=== PATIENT | male | born 1950 | race Caucasian/White ===

== ENCOUNTER 2020-03-23 12:09 | Emergency (ER) | payer MEDICARE, SELFPAY ==
--- NOTE | 2020-03-23 13:51 | XR_ITS ---
EXAMINATION: XR CHEST CLINICAL INFORMATION: Low oxygen. COMPARISON: None TECHNIQUE: Frontal view of the chest was obtained. FINDINGS: Lungs are hyperinflated with increase bilateral interstitial prominence and few patchy opacities in lower lobes suspicious for interstitial pneumonitis. No consolidation or pleural effusion seen. The heart size and pulmonary vascularity is normal. Moderate spondylosis seen dorsal spine.. XR/XR chest 1V IMPRESSION: Suspect bilateral interstitial pneumonitis and/or infiltrates.
[2020-03-23 14:28] VITALS: BP 120/65; PULSE 84; RESP 24; TEMP 37.4; O2SAT 92; BMI 34.2
--- NOTE | 2020-03-23 14:32 | PC.NURSE ---
AMBULATION TRIAL SPO2 INCREASED FROM 92 TO 94-95%, PT DENIES HERRERA BUT REPORTS SOME DIZZINESS AND HEAVINESS R SIDE OF CHEST.
--- NOTE | 2020-03-23 14:38 | ECG_ITS ---
Test Reason : SOB Blood Pressure : / mmHG Vent. Rate : 065 BPM Atrial Rate : 065 BPM P-R Int : 148 ms QRS Dur : 096 ms QT Int : 382 ms P-R-T Axes : 045 015 029 degrees QTc Int : 397 ms Normal sinus rhythm Nonspecific T wave abnormality Abnormal ECG When compared with ECG of 10-FEB-2004 12:01, Nonspecific T wave abnormality now evident in Lateral leads Referred By: Maris Finney Electronically Signed By:Tre Costa
--- NOTE | 2020-03-23 15:08 | ED_ITS ---
HPI - SOB/Dyspnea General Chief Complaint: Dyspnea Stated Complaint: COVID+,LOW O2 Time Seen by Provider: 03/23/20 13:50 Source: patient Mode of arrival: ambulatory History of Present Illness HPI Narrative: 69-year-old male COVID-19 positive 11 days ago presenting to the ED complaining of continued/worsening SOB, productive cough of phlegm, chest discomfort, and near syncope today while in the shower after a coughing fit. Admits pulse oximeter at home reading in the 80s. Denies feeling lightheaded/dizzy at present. Denies chills, abdominal pain, nausea/vomiting, LE edema, history of blood clots, smoking, recent travel MD elicited complaint: shortness of breath and cough Related Data Previous Rx's Medication Instructions Recorded albuterol sulfate 2 puff INHALATION Q4-6H PRN #6.7 g 03/23/20 azithromycin 250 mg PO DAILY 4 Days #4 tab 03/23/20 fluticasone propionate [Flonase 2 spray INTRANASAL DAILY #16 g 03/23/20 Allergy Relief] Allergies Allergy/AdvReac Type Severity Reaction Status Date / Time No Known Allergies Allergy Verified 03/23/20 13:51 Review of Systems Review of Systems: Constitutional: No Weight loss, No Fever, No Chills, No Night Sweats, + Fatigue, + Malaise ENT/Mouth: No Hearing loss, No Ear Pain, No Nasal Congestion, No Sinus Pain, No Hoarseness, No sore throat, No Rhinorrhea, No Swallowing Difficulty Eyes: No Swelling, No Redness, No Foreign Body, No Discharge, No Vision Changes Cardiovascular: + Chest Pain, + SOB, + Dyspnea on Exertion, No Orthopnea, No Edema Respiratory: + Cough, +Sputum, No Wheezing Gastrointestinal: No Nausea, No Vomiting, No Diarrhea, No Constipation, No Abdominal pain Genitourinary: No irregular bleeding, No Dysuria, No Urinary Frequency, No Hematuria Musculoskeletal: No joint pain, + Myalgias, No Joint Swelling Skin: No Skin Lesions, No rash Neuro: No Weakness, No Numbness, No Loss of Consciousness, + lightheadedness/ Dizziness (resolved), + Headache Yes all other systems are reviewed and are negative PMFSH Past Medical History Attestation statement: The following information was validated with the patient. Source: nursing notes reviewed Medical History (Updated 03/23/20 @ 16:14 by ALAYNA [place]) No known health problems Social History Social History Alcohol intake: current Alcohol intake frequency: holidays/special occasions only Alcohol type: beer Smoking Status: Never smoker Use of substances other than those prescribed or required for medical reasons: No Advance Directives: No Advance Directives Information Provided: No Physical Exam Vital Signs: Vital Signs: Last Vital Signs Temp 98.9 F 03/23/20 15:50 Pulse 62 03/23/20 15:50 Resp 16 03/23/20 15:50 BP 141/65 H 03/23/20 15:50 Pulse Ox 97 03/23/20 15:50 Body Mass Index 34.2 Const: General: cooperative and healthy appearing Orientation/consciousness: patient oriented x3 Limitations: no limitations HENMT: Head: Yes normal to inspection Ears: hearing grossly normal bilaterally General nose exam: Normal external nose present Face and sinus: Yes normal facial exam Throat: Yes posterior oropharynx normal, Yes tonsils normal and Yes uvula midline Eyes: General: appearance normal, both eyes and all related structures Pupils: Equal, round and reactive pupils present EOM: EOMs intact bilaterally Neck: Neck: Yes normal visual inspection, Yes no lymphadenopathy and Yes no meningeal signs Resp: Effort & Inspection: normal respiratory effort Auscultation: clear to auscultation bilaterally, no rales, no rhonchi and no wheezes Cardio: Rate: regular rate Heart sounds: S1 normal heart sound present and S2 normal heart sound present GI: Inspection: Yes normal to inspection Palpation (GI): Soft to palpation, nontender, no guarding and not rigid Skin: Rashes: no rashes Wounds: no wounds Neuro: General: patient oriented x3, gait normal, tone normal, moves all extremities, no meningeal signs, no focal motor deficits and CN's II-XI intact bilaterally Cranial nerves: Yes Equal, round and reactive pupils present Cognition (Neuro): normal cognition Gait exam (Neuro): Normal gait present Motor exam (neuro): 5/5 motor strength present throughout Extrem: General: Yes normal to inspection Course Course Course Narrative: XR chest 1V IMPRESSION: Suspect bilateral interstitial pneumonitis and/or infiltrates >> p.o. azithromycin ordered -labs notable for elevated troponin to 16.9, will obtain 3 hour repeat -1700-- ED care transferred to [facility] pending repeat troponin, orthostatics, re-evaluation and anticipated DC home MDM - SOB/Dyspnea MDM Narrative Medical decision making narrative: 69-year-old male COVID-19 positive 11 days ago presenting to the ED complaining of continued/worsening SOB, productive cough of phlegm, chest discomfort, and near syncope today while in the shower after a coughing fit. On exam low-grade temp 99.4?, NAD/nontoxic-appearing, maintained saturations greater than 92% on ambulation on RA in ED without ligh theadedness/dizziness. No focal neuro deficits, lungs CTA. Concern for COVID sx/pneumonia vs dehydration/metabolic abnormalities. Lower concern for PE or ACS, near syncope in shower today likely vasovagal Plan: EKG, labs, CXR, IVF, orthostatics, re-evaluated Medical Records Attestation: I reviewed the patient's medical records. Lab Data Attestation: I reviewed the patient's lab results. Result diagrams: 03/23/20 15:38 03/23/20 15:38 Labs: Lab Results 03/23/20 03/23/20 03/23/20 Range/Units 15:38 15:38 15:38 WBC 5.9 (4.8-10.8) X10*3/uL RBC 4.59 L (4.60-5.80) X10*6/uL Hgb 14.5 (14.0-18.0) g/dl Hct 41.8 L (42-52) % MCV 91.1 (80-98) fL MCH 31.6 (27.0-33.0) pg MCHC 34.7 (31.0-36.0) g/dl RDW 11.8 (11.0-16.0) % Plt Count 218 (160-400) X10*3/uL MPV 10.7 (9.4-12.4) fL Immature Gran % (Auto) 0.3 (0.0-0.4) % Neut % (Auto) 61.0 (45-73) % Lymph % (Auto) 27.4 (20-40) % Morrill % (Auto) 10.5 (2-11) % Eos % (Auto) 0.5 (0-4) % Baso % (Auto) 0.3 (0-2) % Lymph # (Auto) 1.6 (1.2-4.9) X10*3/uL Morrill # (Auto) 0.6 (0.1-1.2) X10*3/uL Eos # (Auto) 0.0 (0.0-0.4) X10*3/uL Baso # (Auto) 0.0 (0.0-0.2) X10*3/uL Abs Immat Gran (auto) 0.02 (0.00-0.03) X10*3/uL Absolute Neuts (auto) 3.6 (2.0-8.3) X10*3/uL Absolute Nucleated RBC 0.000 (0.0-0.012) X10*3/uL Nucleated RBC % (auto) 0.0 (0.0-0.2) /100WBC Smear Tech's Comments VERIFIED Hold Blue Top SEE NOTE Sodium 138 (135-145) mmol/L Potassium 4.4 (3.3-5.1) mmol/l Chloride 101 (96-108) mmol/L Carbon Dioxide 26 (22-29) mmol/L Anion Gap 15 (12-20) BUN 16 (9-16) mg/dL Creatinine 1.05 (0.5-1.4) mg/dL Estim Creat Clear Calc 79.3 Estimated GFR > 60 Random Glucose 88 (60-115) mg/dL Calcium 8.7 (8.4-10.2) mg/dL Magnesium 2.2 (1.6-2.6) mg/dL Total Bilirubin 0.7 (0.0-1.0) mg/dL Direct Bilirubin 0.3 (0.0-0.5) mg/dL AST 36 (5-37) U/L ALT 34 (0-40) U/L Alkaline Phosphatase 96 (39-117) U/L Troponin I High Sens (<3.5-35.0) ng/L Total Protein 7.1 (6.5-8.0) g/dL Albumin 4.2 (3.5-5.0) g/dL 03/23/20 Range/Units 15:38 WBC (4.8-10.8) X10*3/uL RBC (4.60-5.80) X10*6/uL Hgb (14.0-18.0) g/dl Hct (42-52) % MCV (80-98) fL MCH (27.0-33.0) pg MCHC (31.0-36.0) g/dl RDW (11.0-16.0) % Plt Count (160-400) X10*3/uL MPV (9.4-12.4) fL Immature Gran % (Auto) (0.0-0.4) % Neut % (Auto) (45-73) % Lymph % (Auto) (20-40) % Morrill % (Auto) (2-11) % Eos % (Auto) (0-4) % Baso % (Auto) (0-2) % Lymph # (Auto) (1.2-4.9) X10*3/uL Morrill # (Auto) (0.1-1.2) X10*3/uL Eos # (Auto) (0.0-0.4) X10*3/uL Baso # (Auto) (0.0-0.2) X10*3/uL Abs Immat Gran (auto) (0.00-0.03) X10*3/uL Absolute Neuts (auto) (2.0-8.3) X10*3/uL Absolute Nucleated RBC (0.0-0.012) X10*3/uL Nucleated RBC % (auto) (0.0-0.2) /100WBC Smear Tech's Comments Hold Blue Top Sodium (135-145) mmol/L Potassium (3.3-5.1) mmol/l Chloride (96-108) mmol/L Carbon Dioxide (22-29) mmol/L Anion Gap (12-20) BUN (9-16) mg/dL Creatinine (0.5-1.4) mg/dL Estim Creat Clear Calc Estimated GFR Random Glucose (60-115) mg/dL Calcium (8.4-10.2) mg/dL Magnesium (1.6-2.6) mg/dL Total Bilirubin (0.0-1.0) mg/dL Direct Bilirubin (0.0-0.5) mg/dL AST (5-37) U/L ALT (0-40) U/L Alkaline Phosphatase (39-117) U/L Troponin I High Sens 16.9 (<3.5-35.0) ng/L Total Protein (6.5-8.0) g/dL Albumin (3.5-5.0) g/dL ECG Data Attestation: I personally reviewed and interpreted this ECG as follows: ECG interpretation date: 03/23/20 ECG interpretation time: 14:51 Interpretation: EKG normal sinus rhythm with rate of 65. Nonischemic Discharge Plan Discharge Clinical Impression: Pneumonia due to COVID-19 virus Patient Disposition: Home, Self-Care Instructions: COVID-19 (Coronavirus Disease 2019) (ED) Additional Instructions: Your x-ray showed evidence of COVID pneumonia. Azithromycin as an antibiotic, take as prescribed. In addition use albuterol inhaler at home for shortness of breath/wheezing. Flonase will help drain her sinuses. Take Tylenol Motrin for body aches/fever. Make sure you are staying hydrated. If her symptoms persist or worsen, have constant worsening chest pain/shortness of breath, persistent lightheadedness/dizziness or pass out return to the ED Prescriptions: New azithromycin 250 mg tablet 250 mg PO DAILY 4 Days Qty: 4 RF: 0 albuterol sulfate 90 mcg/actuation HFA aerosol inhaler 2 puff inhalation Q4-6H PRN (Reason: shortness of breath or wheezing) Qty: 6.7 RF: 0 fluticasone propionate [Flonase Allergy Relief] 50 mcg/actuation spray,suspen arley 2 spray intranasal DAILY Qty: 16 RF: 0 Referrals: Roberto Lopez MD [Primary Care Provider] - 2 days
[2020-03-23] MEDS: Acetaminophen 325 MG TABLET 650 MG PO (15:38)
[2020-03-23] MEDS: 0.9 % Sodium Chloride 1,000 ML 999 ML IVCONT (15:39)
[2020-03-23 15:50] VITALS: BP 141/65; PULSE 62; RESP 16; TEMP 37.2; O2SAT 97
[2020-03-23 15:57] LABS: Basophils Percent Auto 0.3 % (0-2); Eosinophils Percent Auto 0.5 % (0-4); Hematocrit 41.8 % (42-52); Hemoglobin 14.5 g/dl (14.0-18.0); Imm Gran Abs Auto 0.02 X10*3/uL (0.00-0.03); Imm Gran Pct Auto 0.3 % (0.0-0.4); Lymphocytes Absolute Auto 1.6 X10*3/uL (1.2-4.9); Lymphocytes Percent Auto 27.4 % (20-40); MANUAL DIFF FLAG SCAN; Mean Corpuscular HGB Conc 34.7 g/dl (31.0-36.0); Mean Corpuscular Hemoglobin 31.6 pg (27.0-33.0); Mean Corpuscular Volume 91.1 fL (80-98); Mean Platelet Volume 10.7 fL (9.4-12.4); Monocytes Absolute Auto 0.6 X10*3/uL (0.1-1.2); Monocytes Percent Auto 10.5 % (2-11); Neutrophils Absolute Auto 3.6 X10*3/uL (2.0-8.3); Platelet Count 218 X10*3/uL (160-400); Red Blood Count 4.59 X10*6/uL (4.60-5.80); Red Cell Distribution Width 11.8 % (11.0-16.0); SCAN SMEAR FLAG 1; White Blood Count 5.9 X10*3/uL (4.8-10.8)
[2020-03-23 16:19] LABS: SLIDE REVIEW VERIFIED
[2020-03-23 16:36] LABS: Alanine Aminotransferase 34 U/L (0-40); Albumin Level 4.2 g/dL (3.5-5.0); Alkaline Phosphatase 96 U/L (39-117); Anion Gap 15 (12-20); Aspartate Amino Transferase 36 U/L (5-37); Bilirubin Direct 0.3 mg/dL (0.0-0.5); Bilirubin Total 0.7 mg/dL (0.0-1.0); Blood Urea Nitrogen 16 mg/dL (9-16); Calcium 8.7 mg/dL (8.4-10.2); Carbon Dioxide 26 mmol/L (22-29); Chloride 101 mmol/L (96-108); Creatinine Clr Calc Pharmacy 79.3; Estimated Glomerular Filt Rate > 60; Glucose Random 88 mg/dL (60-115); Magnesium 2.2 mg/dL (1.6-2.6); Potassium 4.4 mmol/l (3.3-5.1); Sodium 138 mmol/L (135-145); Total Protein 7.1 g/dL (6.5-8.0)
[2020-03-23 16:37] LABS: Troponin-I High Sensitivity 16.9 ng/L (<3.5-35.0)
[2020-03-23] MEDS: Azithromycin 500 MG TABLET PO (18:38)
[2020-03-23 18:44] VITALS: BP 128/63; PULSE 64
[2020-03-23 18:45] VITALS: BP 140/70; PULSE 75
[2020-03-23 19:35] LABS: Troponin-I High Sensitivity 14.9 ng/L (<3.5-35.0)
== END 2020-03-23 20:34 | disposition home or self-care (01) ==
PROVIDERS: Physician Assistant; Emergency Provider Internal Medicine; PCP Internal Medicine
DX: U07.1 COVID-19 (principal); J12.82 Pneumonia due to coronavirus disease 2019
CPT/HCPCS: 36415; 71045; 80048; 80076; 83735; 84484; 85025; 93005; 96360; 99284